=== PATIENT | male | born 1985 | race Two or more races ===

== ENCOUNTER 2020-05-25 05:09 | Emergency (ER) | payer SELFPAY ==
--- NOTE | 2020-05-25 05:55 | EDM.PDOC ---
ED HPI GENERAL MEDICAL PROBLEM - General Chief Complaint: Upper Extremity Injury/Pain Stated Complaint: RIGHT SIDE OF BODY GOING NUMB Time Seen by Provider: 05/25/20 05:24 - History of Present Illness INITIAL COMMENTS - FREE TEXT/NARRATIVE: Patient is a 34-year-old male who is presenting with lateral hand discomfort numbness and tingling that is been going on on and off for the last week he noticed it first on the right hand and then in the left hand. It associated with difficulty using his hands difficulty pinching to work bolts and things like that. He also reports bilateral foot numbness and tingling. He denies any other current medical problems. However, he notes that in the past he did have acute kidney injury in the setting of an infected ingrown hair that required surgical operation with IV antibiotics. Patient denies recent fevers or chills he denies any chest pain or abdominal pain. He denies any lower extremity pain or swelling. He denies any recent injuries. He reports some minimal neck pain but not a significant amount he denies symptoms shooting from his neck down into his arms he reports symptoms only in his hands. He also reports a sensation that his hands feel swollen. - Related Data Allergies Allergy/AdvReac Type Severity Reaction Status Date / Time No Known Allergies Allergy Verified 05/25/20 05:25 Home Meds: Home Meds Ibuprofen [Ibu] 600 mg PO TID 5 Days #15 tablet 05/25/20 [Rx] Past Medical History - Past Health History Medical/Surgical History: Denies Medical/Surgical History - Infectious Disease History Infectious Disease History: Reports: Chicken Pox Social & Family History - Family History Family Medical History: Noncontributory - Tobacco Use Smoking Status *Q: Unknown Ever Smoked ED ROS GENERAL - Review of Systems Review Of Systems: See Below Free Text/Narrative/Comment: General: No fever. Skin: No rash. Eyes: No vision problems. ENT: No sore throat. Neck: No neck stiffness. Respiratory: No shortness of breath. Cardiac: No chest pain. Gastrointestinal: No nausea, vomiting or abdominal pain. Urinary: No dysuria. Musculoskeletal: Per HPI Neurologic: No headache. 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 Neurologic: Awake, alert, no obvious deficits, moving all extremities Psychiatric: Appropriate, cooperative Course - Vital Signs Last Recorded V/S: Last Vital Signs Temp 98.7 F 05/25/20 05:22 Pulse 80 05/25/20 05:22 Resp 16 05/25/20 05:22 BP 138/75 05/25/20 05:22 Pulse Ox 98 05/25/20 05:22 - Orders/Labs/Meds Labs: Laboratory Tests 05/25/20 05/25/20 Range/Units 06:00 06:00 WBC 9.42 (4.0-11.0) K/uL RBC 4.62 (4.50-5.90) M/uL Hgb 13.8 (13.0-17.0) g/dL Hct 42.2 (38.0-50.0) % MCV 91.3 (80.0-98.0) fL MCH 29.9 (27.0-32.0) pg MCHC 32.7 (31.0-37.0) g/dL RDW Std Deviation 46.3 (28.0-62.0) fl RDW Coeff of Arya 14 (11.0-15.0) % Plt Count 269 (150-400) K/uL MPV 10.60 (7.40-12.00) fL Neut % (Auto) 51.4 (48.0-80.0) % Lymph % (Auto) 35.8 (16.0-40.0) % [place] % (Auto) 8.5 (0.0-15.0) % Eos % (Auto) 3.9 (0.0-7.0) % Baso % (Auto) 0.4 (0.0-1.5) % Neut # (Auto) 4.8 (1.4-5.7) K/uL Lymph # (Auto) 3.4 H (0.6-2.4) K/uL [place] # (Auto) 0.8 (0.0-0.8) K/uL Eos # (Auto) 0.4 (0.0-0.7) K/uL Baso # (Auto) 0.0 (0.0-0.1) K/uL Nucleated RBC % 0.0 /100WBC Nucleated RBCs # 0 K/uL Sodium 141 (136-148) mmol/L Potassium 3.7 (3.5-5.1) mmol/L Chloride 107 (98-107) mmol/L Carbon Dioxide 25.0 (21.0-32.0) mmol/L BUN 10 (7.0-18.0) mg/dL Creatinine 1.2 (0.8-1.3) mg/dL Est Cr Clr Drug Dosing 80.33 mL/min Estimated GFR (MDRD) > 60.0 ml/min Glucose 119 H (74-106) mg/dL Calcium 8.3 L (8.5-10.1) mg/dL Magnesium 1.9 (1.8-2.4) mg/dL Departure - Departure Time of Disposition: 06:49 Disposition: Home, Self-Care 01 Condition: Good Clinical Impression: Carpal tunnel syndrome, bilateral - Discharge Information *PRESCRIPTION DRUG MONITORING PROGRAM REVIEWED*: Not Applicable *COPY OF PRESCRIPTION DRUG MONITORING REPORT IN PATIENT ANNIA: Not Applicable Prescriptions: Ibuprofen [Ibu] 600 mg PO TID 5 Days #15 tablet Instructions: Carpal Tunnel Syndrome, [id number] Referrals: Vidya Pfeiffer [Outside] Forms: ED Department Discharge Additional Instructions: As we discussed we will try some scheduled anti-inflammatories for the next 5 days to see if that improves the symptoms in your hands that I think are most likely related to carpal tunnel. However, is important to realize that he remain at risk for diabetes and other medical problems particularly since you are having some numbness in the bottom of your feet. For this reason in order to have a good reassessment to make sure that your symptoms are improving it is important you follow-up with the primary care clinic. Please make an appointment to see them later this week. If your symptoms worsen or any other new symptoms develop that concern you please return to the ER. The following information is given to patients seen in the emergency department who are being discharged to home. This information is to outline your options for follow-up care. We provide all patients seen in our emergency department with a follow-up referral. The need for follow-up, as well as the timing and circumstances, are variable depending upon the specifics of your emergency department visit. If you don't have a primary care physician on staff, we will provide you with a referral. We always advise you to contact your personal physician following an emergency department visit to inform them of the circumstance of the visit and for follow-up with them and/or the need for any referrals to a consulting specialist. The emergency department will also refer you to a specialist when appropriate. This referral assures that you have the opportunity for follow-up care with a specialist. All of these measure are taken in an effort to provide you with optimal care, which includes your follow-up. Under all circumstances we always encourage you to contact your private physician who remains a resource for coordinating your care. When calling for follow-up care, please make the office aware that this follow-up is from your recent emergency room visit. If for any reason you are refused follow-up, please contact the [facility] Emergency Dep artment at and asked to speak to the emergency department charge nurse. Sepsis Event Note (ED) - Evaluation Sepsis Screening Result: No Definite Risk - Focused Exam Vital Signs: Vital Signs Temp Pulse Resp BP Pulse Ox 05/25/20 05:22 98.7 F 80 16 138/75 98 - Assessment/Plan Assessment:: 33-year-old male presenting with bilateral hand paresthesias and foot paresthesias. Regarding his hand symptoms I would favor carpal tunnel syndrome. We could do a trial of high-dose NSAIDs for this. However would not explain his foot paresthesias and given his past history we need to consider renal dysfunction electrolyte dysfunction etc. Patient would greatly benefit from a primary care provider now that he has insurance. However will check CBC and BMP as well as magnesium to ensure renal function and electrolytes are appropriate. Given bilateral nature paresthesias low concern for stroke no history of neck trauma or neck findings that would indicate cervical radiculopathy. 0650: Pt's labs are normal. No signs of ALCIRA or electrolyte abnormalities. Will trial 600mg ibuprofen Q8Hr for 5 days. Pt will f/u with [facility].
[2020-05-25 06:28] LABS: BLOOD UREA NITROGEN,BUN 10 mg/dL (7.0-18.0); CHLORIDE,CL 107 mmol/L (98-107); GLUCOSE RANDOM 119 mg/dL (74-106); POTASSIUM,K 3.7 mmol/L (3.5-5.1); SODIUM,NA 141 mmol/L (136-148)
== END 2020-05-25 07:00 | disposition home or self-care (01) ==
LOC: MW.ED 05:09
DX: G56.03 Carpal tunnel syndrome, bilateral upper limbs (principal); L73.1 Pseudofolliculitis barbae
CPT/HCPCS: 36415; 80048; 83735; 85025; 99282; 99284

== ENCOUNTER 2020-05-27 00:39 | Emergency (ER) | payer SELFPAY ==
[2020-05-27] MEDS ORDERED: Sodium Chloride 0.9% 2.5 ML Syringe FLUSH PRN (00:58)
[2020-05-27] MEDS ORDERED: Sodium Chloride 0.9% 10 ML Syringe FLUSH PRN (00:58)
--- NOTE | 2020-05-27 01:06 | EDM.PDOC ---
ED HPI GENERAL MEDICAL PROBLEM - General Chief Complaint: Respiratory Problem Stated Complaint: SHORTNESS OF BREATH, TINGLING Time Seen by Provider: 05/27/20 00:45 - History of Present Illness INITIAL COMMENTS - FREE TEXT/NARRATIVE: 34-year-old male presenting with chief complaint of shortness of breath. Patient reports that since May 25 he has had trouble with waking up in the night feeling like he cannot breathe. As he gets up and moves around it very slowly improves but last typically 30 to 45 minutes. He experiences it primarily at night. He reports some mild dyspnea on exertion following the episodes but denies a history of exertional dyspnea during the day and denies any chest pain at rest or with exertion. No cough no fever patient notes diffuse hand and feet paresthesias and numbness and tingling as well as a sensation that his hands and feet are swelling. He feels like his hands are so swollen that he is losing strength. 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 He denies a prior history of cardiac pathology he does note that in the past he had trouble with his kidneys but instead recovered. He was seen in this ER on the and says that at that time he did not have huge amount of shortness of breath but had more tingling and hand discomfort. He was seen basic labs were done he was discharged with a prescription for ibuprofen for carpal tunnel. Patient returns for persistent inability to sleep and now primarily with concern regarding shortness of breath. - Related Data Allergies Allergy/AdvReac Type Severity Reaction Status Date / Time No Known Allergies Allergy Verified 05/27/20 00:50 Home Meds: Home Meds Furosemide [Lasix] 20 mg PO DAILY 3 Days #3 tablet 05/27/20 [Rx] Potassium Chloride [K-Tab ER] 20 meq PO DAILY 5 Days #5 tablet.er 05/27/20 [Rx] Past Medical History - Past Health History Medical/Surgical History: Denies Medical/Surgical History HEENT History: Reports: None Cardiovascular History: Reports: None Respiratory History: Reports: None Gastrointestinal History: Reports: None Genitourinary History: Reports: None Musculoskeletal History: Reports: None Neurological History: Reports: None Psychiatric History: Reports: None Endocrine/Metabolic History: Reports: None Hematologic History: Reports: None Immunologic History: Reports: None Oncologic (Cancer) History: Reports: None Dermatologic History: Reports: None - Infectious Disease History Infectious Disease History: Reports: None - Past Surgical History Head Surgeries/Procedures: Reports: None Male Surgical History: Reports: None Social & Family History - Family History Family Medical History: Noncontributory - Caffeine Use Caffeine Use: Reports: None - Recreational Drug Use Recreational Drug Use: No ED ROS GENERAL - Review of Systems Review Of Systems: See Below Free Text/Narrative/Comment: General: No fever. Skin: No rash. Eyes: No vision problems. ENT: No sore throat. Neck: No neck stiffness. Respiratory: Per HPI Cardiac: No chest pain. Gastrointestinal: No nausea, vomiting or abdominal pain. Urinary: No dysuria. Musculoskeletal: Per HPI Neurologic: No headache. 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 Neurologic: Awake, alert, no obvious deficits, moving all extremities Psychiatric: Appropriate, cooperative EKG INTERPRETATION EKG Interpretation Comments: EKG obtained at 0109 demonstrates normal sinus rhythm with a rate of 68 normal axis and intervals no acute ischemia normal EKG Course - Vital Signs Last Recorded V/S: Last Vital Signs Temp 97.5 F 05/27/20 00:47 Pulse 69 05/27/20 02:00 Resp 16 05/27/20 02:00 BP 119/61 05/27/20 02:00 Pulse Ox 96 05/27/20 02:00 - Orders/Labs/Meds Orders: Active Orders 24 hr Category Date Time Status EKG Documentation Completion [RC] STAT Care 05/27/20 00:59 Active Sodium Chloride 0.9% [Saline Flush] Med 05/27/20 00:58 Active 10 ml FLUSH ASDIRECTED PRN Sodium Chloride 0.9% [Saline Flush] Med 05/27/20 00:58 Active 2.5 ml FLUSH ASDIRECTED PRN Saline Lock Insert [OM.PC] Stat Oth 05/27/20 00:59 Ordered Medication Orders Sodium Chloride (Saline Flush) 10 ml FLUSH ASDIRECTED PRN PRN Reason: Keep Vein Open Sodium Chloride (Saline Flush) 2.5 ml FLUSH ASDIRECTED PRN PRN Reason: Keep Vein Open Labs: Laboratory Tests 05/27/20 05/27/20 05/27/20 Range/Units 01:05 01:05 01:05 WBC 11.63 H (4.0-11.0) K/uL RBC 4.43 L (4.50-5.90) M/uL Hgb 13.5 (13.0-17.0) g/dL Hct 40.1 (38.0-50.0) % MCV 90.5 (80.0-98.0) fL MCH 30.5 (27.0-32.0) pg MCHC 33.7 (31.0-37.0) g/dL RDW Std Deviation 44.7 (28.0-62.0) fl RDW Coeff of Arya 14 (11.0-15.0) % Plt Count 251 (150-400) K/uL MPV 10.70 (7.40-12.00) fL Neut % (Auto) 56.0 (48.0-80.0) % Lymph % (Auto) 34.5 (16.0-40.0) % [place] % (Auto) 6.4 (0.0-15.0) % Eos % (Auto) 2.8 (0.0-7.0) % Baso % (Auto) 0.3 (0.0-1.5) % Neut # (Auto) 6.5 H (1.4-5.7) K/uL Lymph # (Auto) 4.0 H (0.6-2.4) K/uL [place] # (Auto) 0.8 (0.0-0.8) K/uL Eos # (Auto) 0.3 (0.0-0.7) K/uL Baso # (Auto) 0.0 (0.0-0.1) K/uL D-Dimer, Quantitative 0.22 (0.0-0.50) mg/L FEU Sodium 138 (136-148) mmol/L Potassium 3.3 L (3.5-5.1) mmol/L Chloride 105 (98-107) mmol/L Carbon Dioxide 24.6 (21.0-32.0) mmol/L BUN 11 (7.0-18.0) mg/dL Creatinine 1.2 (0.8-1.3) mg/dL Est Cr Clr Drug Dosing 83.13 mL/min Estimated GFR (MDRD) > 60.0 ml/min Glucose 123 H (74-106) mg/dL Calcium 8.2 L (8.5-10.1) mg/dL Total Bilirubin 0.2 (0.2-1.0) mg/dL AST 21 (15-37) IU/L ALT 45 (14-63) IU/L Alkaline Phosphatase 105 (46-116) U/L Troponin I < 0.050 (0.000-0.056) ng/mL B-Natriuretic Peptide (<100) PG/ML Total Protein 6.9 (6.4-8.2) g/dL Albumin 3.4 (3.4-5.0) g/dL Globulin 3.5 (2.6-4.0) g/dL Albumin/Globulin Ratio 1.0 (0.9-1.6) Urine Color Urine Appearance Urine pH (5.0-8.0) Ur Specific [place] (1.001-1.035) Urine Protein (NEGATIVE) mg/dL Urine Glucose (UA) (NEGATIVE) mg/dL Urine Ketones (NEGATIVE) mg/dL Urine Occult Blood (NEGATIVE) Urine Nitrite (NEGATIVE) Urine Bilirubin (NEGATIVE) Urine Urobilinogen (<2.0) EU/dL Ur Leukocyte Esterase (NEGATIVE) 05/27/20 05/27/20 Range/Units 01:05 01:55 WBC (4.0-11.0) K/uL RBC (4.50-5.90) M/uL Hgb (13.0-17.0) g/dL Hct (38.0-50.0) % MCV (80.0-98.0) fL MCH (27.0-32.0) pg MCHC (31.0-37.0) g/dL RDW Std Deviation (28.0-62.0) fl RDW Coeff of Arya (11.0-15.0) % Plt Count (150-400) K/uL MPV (7.40-12.00) fL Neut % (Auto) (48.0-80.0) % Lymph % (Auto) (16.0-40.0) % [place] % (Auto) (0.0-15.0) % Eos % (Auto) (0.0-7.0) % Baso % (Auto) (0.0-1.5) % Neut # (Auto) (1.4-5.7) K/uL Lymph # (Auto) (0.6-2.4) K/uL [place] # (Auto) (0.0-0.8) K/uL Eos # (Auto) (0.0-0.7) K/uL Baso # (Auto) (0.0-0.1) K/uL D-Dimer, Quantitative (0.0-0.50) mg/L FEU Sodium (136-148) mmol/L Potassium (3.5-5.1) mmol/L Chloride (98-107) mmol/L Carbon Dioxide (21.0-32.0) mmol/L BUN (7.0-18.0) mg/dL Creatinine (0.8-1.3) mg/dL Est Cr Clr Drug Dosing mL/min Estimated GFR (MDRD) ml/min Glucose (74-106) mg/dL Calcium (8.5-10.1) mg/dL Total Bilirubin (0.2-1.0) mg/dL AST (15-37) IU/L ALT (14-63) IU/L Alkaline Phosphatase (46-116) U/L Troponin I (0.000-0.056) ng/mL B-Natriuretic Peptide 18 (<100) PG/ML Total Protein (6.4-8.2) g/dL Albumin (3.4-5.0) g/dL Globulin (2.6-4.0) g/dL Albumin/Globulin Ratio (0.9-1.6) Urine Color YELLOW Urine Appearance CLEAR Urine pH 6.5 (5.0-8.0) Ur Specific [place] 1.025 (1.001-1.035) Urine Protein NEGATIVE (NEGATIVE) mg/dL Urine Glucose (UA) NEGATIVE (NEGATIVE) mg/dL Urine Ketones NEGATIVE (NEGATIVE) mg/dL Urine Occult Blood NEGATIVE (NEGATIVE) Urine Nitrite NEGATIVE (NEGATIVE) Urine Bilirubin NEGATIVE (NEGATIVE) Urine Urobilinogen 0.2 (<2.0) EU/dL Ur Leukocyte Esterase NEGATIVE (NEGATIVE) Meds: Medications Generic Name Dose Route Start Last Admin Trade Name Freq PRN Reason Stop Dose Admin Sodium Chloride 10 ml 05/27/20 00:58 Saline Flush FLUSH ASDIRECTED PRN Keep Vein Open Sodium Chloride 2.5 ml 05/27/20 00:58 Saline Flush FLUSH ASDIRECTED PRN Keep Vein Open Discontinued Medications Generic Name Dose Route Start Last Admin Trade Name Freq PRN Reason Stop Dose Admin Furosemide 20 mg 05/27/20 02:16 Lasix IVPUSH 05/27/20 02:17 NOW ONE Potassium Chloride 20 meq 05/27/20 02:16 Klor-Con M20 PO 05/27/20 02:17 ONETIME ONE Departure - Departure Time of Disposition: 02:21 Disposition: Home, Self-Care 01 Condition: Good Clinical Impression: Fluid overload - Discharge Information *PRESCRIPTION DRUG MONITORING PROGRAM REVIEWED*: Not Applicable *COPY OF PRESCRIPTION DRUG MONITORING REPORT IN PATIENT ANNIA: Not Applicable Prescriptions: Potassium Chloride [K-Tab ER] 20 meq PO DAILY 5 Days #5 tablet.er Furosemide [Lasix] 20 mg PO DAILY 3 Days #3 tablet Instructions: Shortness of Breath, Adult, [id number] Referrals: Vidya Pfeiffer [Outside] Forms: ED Department Discharge Additional Instructions: I have sent prescription for a short course of potassium as well as diuretic to the pharmacy. Please pick these up tomorrow. There is will help your body raise his potassium level it will also help your body eliminate extra fluid. The underlying cause of your fluid retention remains unclear. Please stop taking the ibuprofen that was prescribed at your last visit. Your labs did not indicate heart failure your chest x-ray was normal as was your kidney and liver function. Because of this uncertainty it is very important that you follow-up in the clinic for additional testing and evaluation. If you develop chest pain or worsening of your symptoms please return to the ER. The following information is given to patients seen in the emergency department who are being discharged to home. This information is to outline your options for follow-up care. We provide all patients seen in our emergency department with a follow-up referral. The need for follow-up, as well as the timing and circumstances, are variable depending upon the specifics of your emergency department visit. If you don't have a primary care physician on staff, we will provide you with a referral. We always advise you to contact your personal physician following an emergency department visit to inform them of the circumstance of the visit and for follow-up with them and/or the need for any referrals to a consulting specialist. The emergency department will also refer you to a specialist when appropriate. This referral assures that you have the opportunity for follow-up care with a specialist. All of these measure are taken in an effort to provide you with optimal care, which includes your follow-up. Under all circumstances we always encourage you to contact your private physician who remains a resource for coordinating your care. When calling for follow-up care, please make the office aware that this follow-up is from your recent emergency room visit. If for any reason you are refused follow-up, please contact the [facility] Emergency Department at and asked to speak to the emergency department charge nurse. Sepsis Event Note (ED) - Evaluation Sepsis Screening Result: No Definite Risk - Focused Exam Vital Signs: Vital Signs Temp Pulse Resp BP Pulse Ox 05/27/20 02:00 69 16 119/61 96 05/27/20 00:47 97.5 F 70 18 130/70 98 - My Orders Last 24 Hours: My Active Orders 05/27/20 00:58 Sodium Chloride 0.9% [Saline Flush] 10 ml FLUSH ASDIRECTED PRN Sodium Chloride 0.9% [Saline Flush] 2.5 ml FLUSH ASDIRECTED PRN 05/27/20 00:59 EKG Documentation Completion [RC] STAT Saline Lock Insert [OM.PC] Stat - Assessment/Plan Last 24 Hours: My Active Orders 05/27/20 00:58 Sodium Chloride 0.9% [Saline Flush] 10 ml FLUSH ASDIRECTED PRN Sodium Chloride 0.9% [Saline Flush] 2.5 ml FLUSH ASDIRECTED PRN 05/27/20 00:59 EKG Documentation Completion [RC] STAT Saline Lock Insert [OM.PC] Stat Assessment:: 34-year-old male presenting with signs and symptoms that seem most consistent with paroxysmal nocturnal dyspnea and fluid overload. Renal function checked few days ago was normal but we will reevaluate this as well as evaluate for heart failure with EKG chest x-ray opponent and BNP. Potential infectious etiology considered but there is no cough there is no fever seems quite unlikely. Though any focal pneumonia should be apparent on the chest x-ray. Patient states that he is in general somewhat sedentary his lungs are relatively clear without huge amount of edema on exam he is low risk for PE he is not tachycardic or hypoxic d-dimer will be sent. No chest pain that would suggest pericarditis echocardiogram would suggest myocarditis COVID considered but again no cough fever felt very unlikely. No findings would suggest bronchitis. Further treatment and disposition pending above work-up. Patient's BNP is quite low. Even when accounting for his morbid obesity is unlikely to represent heart failure. Chest x-ray without pulmonary edema urinalysis without signs of nephrotic syndrome renal function is normal liver function is normal. The etiology of his fluid retention remains unclear to me. He is mildly hypokalemic. Given his symptoms we will provide a single dose of Lasix and potassium here and write a short prescription for the same for the next 3 days. I discussed with the patient that the underlying etiology of his illness remains unclear to me and it is very important that he follow-up in the clinic for additional evaluation and testing as may be indicated. He expresses understanding.
--- NOTE | 2020-05-27 01:32 | CR ---
Indication: Shortness of breath Technique: Chest 2 views Comparison: None Findings/Impression: Cardiovascular and mediastinum: Heart size and vasculature are normal in caliber and appearance. Mediastinum is within normal limits. Lungs and pleural spaces: Lungs are clear. No sign of infiltrate or mass. No sign of pleural effusion. No pneumothorax. Bones and soft tissues: No significant findings. Dictated by Roni Hodges MD @ May 27 2020 1:31AM Signed by Dr. Roni Hodges @ May 27 2020 1:31AM
[2020-05-27 01:34] LABS: BLOOD UREA NITROGEN,BUN 11 mg/dL (7.0-18.0); CARBON DIOXIDE,CO2 24.6 mmol/L (21.0-32.0); CHLORIDE,CL 105 mmol/L (98-107); GLUCOSE RANDOM 123 mg/dL (74-106); POTASSIUM,K 3.3 mmol/L (3.5-5.1); SODIUM,NA 138 mmol/L (136-148)
[2020-05-27] MEDS ORDERED: Potassium Chloride 20 MEQ Tab.ER PO ONE (02:16)
[2020-05-27] MEDS ORDERED: Furosemide 40 MG/4 ML VIAL IVPUSH ONE (02:16)
[2020-05-27] MEDS ORDERED: Potassium Chloride 20 MEQ Tab.ER ONE (02:18)
== END 2020-05-27 02:40 | disposition home or self-care (01) ==
LOC: MW.ED 00:39
DX: E87.70 Fluid overload, unspecified (principal)
CPT/HCPCS: 36415; 71046; 80053; 81003; 83880; 84484; 85025; 85379; 93005; 96374; 99285; A9270; J1940